=== PATIENT | male | born 1950 | race Caucasian/White ===

== ENCOUNTER → 2017-01-22 | Outpatient (CLI) | payer MEDICARE ==
[~2017-01-22] MED LIST: ASPI-496 PO; ASPI325T4 PO; ASPI325T80 PO; ASPIRIN PO; ATOR10TA PO; CLIN300C93 PO; DIAZ10TA PO; MULTIVITAMIN PO; OMEG500C3 PO; OMEP20CA9 PO; OXYC-229 PO; OXYC20TA42 PO; SULF1TAB3 PO; TADA5TAB2 PO; TEST200V3 IM
== END | disposition home or self-care (01) ==
LOC: CVU 07:06
PROVIDERS: ATTEND Internal Medicine Cardiovascular Disease
DX: Z13.6 Encounter for screening for cardiovascular disorders (principal); I50.30 Unspecified diastolic (congestive) heart failure; I08.3 Combined rheumatic disorders of mitral, aortic and tricuspid valves; I25.2 Old myocardial infarction; Z86.73 Personal history of transient ischemic attack (TIA), and cerebral infarction without residual deficits; I65.23 Occlusion and stenosis of bilateral carotid arteries; I71.4 Abdominal aortic aneurysm, without rupture; G47.33 Obstructive sleep apnea (adult) (pediatric); Z96.643 Presence of artificial hip joint, bilateral
CPT/HCPCS: 93306; 93880; 93978

== ENCOUNTER 2019-05-13 13:48 | Outpatient (CLI) | payer MEDICARE ==
[~2019-05-13 13:48] MED LIST changes: +ASPI325T17 PO; -ASPI325T4 PO; +CLIN300C8 PO; -CLIN300C93 PO; -OXYC-229 PO; +OXYC-307 PO; +SULF-169 PO; -SULF1TAB3 PO
== END 2019-05-13 23:59 | disposition home or self-care (01) ==
LOC: CFH 13:48
PROVIDERS: ATTEND Internal Medicine Cardiovascular Disease
DX: I08.2 Rheumatic disorders of both aortic and tricuspid valves (principal); E78.5 Hyperlipidemia, unspecified; I44.7 Left bundle-branch block, unspecified
CPT/HCPCS: 93306

== ENCOUNTER 2020-02-12 11:19 | Emergency (ER) | payer MEDICARE ==
[~2020-02-12] VITALS: Ht 180.3 cm; Wt 105.0 kg
[2020-02-12] MEDS ORDERED: PROB500T22 PO (11:37)
[2020-02-12] MEDS ORDERED: OXYC-432 PO (11:37)
[2020-02-12] MEDS ORDERED: METR-90 PO (11:37)
[2020-02-12] MEDS ORDERED: CEPH-376 PO (11:37)
[2020-02-12] MEDS ORDERED: HYDR4TAB PO (11:37)
--- NOTE | 2020-02-12 11:41 | NUR ---
MIRIAM LESLIE BS FOR EXAM. PT STATES HE STARTED ANTIBIOTIC YESTERDAY MORNING. PT ABLE TO SPEAK IN COMPLETE SENTENCES, SPEECH CLEAR, RESP EVEN & UNLABORED, SPEECH CLEAR. REPORT SORE THROAT RT SIDED. DENIES DYSPNEA, SOB. PT STATES HE WAS ADVISED TO SEEK ED EVAL PER ENDODENTIST. TOOK OXYCODONE ER 20MG AT 0830.
[2020-02-12 12:06] LABS: BASOPHILS # (AUTO) 0.02 x10^3/uL (0-0.1); BASOPHILS % (AUTO) 0 % (0-1); EOSINOPHILS # (AUTO) 0.06 x10^3/uL (0-0.4); EOSINOPHILS % (AUTO) 1 % (1-7); LYMPHOCYTES # (AUTO) 1.34 x10^3/uL (1-3.4); LYMPHOCYTES % (AUTO) 15 % (22-44); MD NO; MEAN CORPUSCULAR HEMOGLOBIN 31.1 pg (27.5-34.5); MEAN CORPUSCULAR HGB CONC 33.4 g/dL (33.2-36.2); MEAN CORPUSCULAR VOLUME 93.1 fL (81-97); MEAN PLATELET VOLUME 7.4 fL (7.4-10.4); MONOCYTES # (AUTO) 1.35 x10^3/uL (0.2-0.8); MONOCYTES % (AUTO) 15 % (2-9); NEUTROPHILS # (AUTO) 6.05 x10^3/uL (1.8-6.8); NEUTROPHILS % (AUTO) 69 % (42-75); PLATELET COUNT 183 x10^3/uL (130-400); RED BLOOD COUNT 5.78 x10^6/uL (4.38-5.82); RED CELL DISTRIBUTION WIDTH 15.3 % (9.4-14.8)
[2020-02-12 12:17] LABS: ANION GAP 5 mmol/L (5-15); CALCIUM 9.2 mg/dL (8.5-10.1); CHLORIDE 107 mmol/L (98-107); CREATININE 1.25 mg/dL (0.7-1.3)
[2020-02-12] MEDS ORDERED: CEFTRIAXONE 1,000 MG IM ONE (12:30)
[2020-02-12] MEDS ORDERED: CEFTRIAXONE 1,000 MG ONE (12:50)
[2020-02-12] MEDS ORDERED: LIDOCAINE-MPF 1%, 2ML ONE (12:51)
--- NOTE | 2020-02-12 13:11 | NUR ---
PT REPORT TO KELVIN CHAPARRO. PT CARE TRANSFERRED.
--- NOTE | 2020-02-12 13:13 | NUR ---
RECEIVED REPORT FROM KELVIN HOBBS.
--- NOTE | 2020-02-12 13:14 | NUR ---
DR JACOB AT BS. PT STATES HE JUST TOOK HIS OWN ANTIBIOTIC. ROCEPHIN ADMINISTRATION TO BE DETERMINED, PER DR JACOB.
--- NOTE | 2020-02-12 13:22 | NUR ---
ROBERTO WALL LAW: CANCEL ROCEPHINE ORDER.
--- NOTE | 2020-02-12 14:15 | NUR ---
Break RN. Pt ok for D/C per ERMD. Pt verbalized understanding of d/c instructions. Pt has all own belongings upon D/C, vss, steady gait.
[2020-02-12 14:18] VITALS: BP 132/79
[2020-02-13] MEDS ORDERED: OXYC-432 PO (15:15)
[2020-02-13] MEDS ORDERED: OMEP20TA62 PO (15:15)
[2020-02-13] MEDS ORDERED: HYDR4TAB48 PO (15:15)
[2020-02-13] MEDS ORDERED: TEST200V3 IM (15:15)
[2020-02-13] MEDS ORDERED: METR-90 PO (15:17)
[2020-02-13] MEDS ORDERED: PROB500T22 PO (15:17)
[2020-02-13] MEDS ORDERED: CEPH-376 PO (15:17)
[2020-02-13] MEDS ORDERED: OXYC5TAB2 PO (20:59)
[2020-02-13] MEDS ORDERED: CLIN300C8 PO (21:00)
== END 2020-02-12 14:19 | disposition home or self-care (01) ==
LOC: ED 12:43
DX: K02.9 Dental caries, unspecified (principal); L03.211 Cellulitis of face; K08.89 Other specified disorders of teeth and supporting structures; Z86.73 Personal history of transient ischemic attack (TIA), and cerebral infarction without residual deficits; Z86.718 Personal history of other venous thrombosis and embolism
CPT/HCPCS: 36415; 70490; 80048; 82040; 85025; 99284

== ENCOUNTER 2020-02-13 10:46 | Observation (INO) | payer MEDICARE ==
[~2020-02-13] VITALS: Ht 180.3 cm; Wt 102.0 kg
[~2020-02-13 10:46] MED LIST changes: +CEPH-376 PO; +HYDR4TAB PO; +METR-90 PO; +OXYC-432 PO; +PROB500T22 PO
--- NOTE | 2020-02-13 11:31 | NUR ---
[employer] SUPERVISOR: PT AMBULATORY WITH STEADY GAIT TO ROOM AT THIS TIME.
[2020-02-13 12:25] LABS: BASOPHILS # (AUTO) 0.02 x10^3/uL (0-0.1); BASOPHILS % (AUTO) 0 % (0-1); EOSINOPHILS # (AUTO) 0.11 x10^3/uL (0-0.4); EOSINOPHILS % (AUTO) 1 % (1-7); LYMPHOCYTES # (AUTO) 1.61 x10^3/uL (1-3.4); LYMPHOCYTES % (AUTO) 21 % (22-44); MD NO; MEAN CORPUSCULAR HEMOGLOBIN 30.8 pg (27.5-34.5); MEAN CORPUSCULAR HGB CONC 33.1 g/dL (33.2-36.2); MEAN PLATELET VOLUME 7.5 fL (7.4-10.4); MONOCYTES # (AUTO) 1.19 x10^3/uL (0.2-0.8); MONOCYTES % (AUTO) 16 % (2-9); NEUTROPHILS # (AUTO) 4.77 x10^3/uL (1.8-6.8); NEUTROPHILS % (AUTO) 62 % (42-75); PLATELET COUNT 182 x10^3/uL (130-400); RED BLOOD COUNT 5.81 x10^6/uL (4.38-5.82); RED CELL DISTRIBUTION WIDTH 15.2 % (9.4-14.8)
[2020-02-13 12:31] LABS: ALBUMIN 3.8 g/dL (3.4-5.0); ANION GAP 5 mmol/L (5-15); CHLORIDE 109 mmol/L (98-107); CREATININE 1.25 mg/dL (0.7-1.3)
--- NOTE | 2020-02-13 12:38 | NUR ---
MILD DISABILITIES TEACHER: DR. ALEXANDER PAGED PER DR. GUILLEN REQUEST.
--- NOTE | 2020-02-13 12:54 | NUR ---
report given to Cat.
--- NOTE | 2020-02-13 13:43 | NUR ---
DR ALEXANDER AT BEDSIDE EXAMINING PT
--- NOTE | 2020-02-13 14:21 | NUR ---
PT AWARE OF INTENTION TO ADMIT. TO XRAY
[2020-02-13] MEDS ORDERED: OXYC-432 PO (15:15)
[2020-02-13] MEDS ORDERED: TEST200V3 IM (15:15)
[2020-02-13] MEDS ORDERED: OMEP20TA62 PO (15:15)
[2020-02-13] MEDS ORDERED: HYDR4TAB48 PO (15:15)
[2020-02-13] MEDS ORDERED: CEPH-376 PO (15:17)
[2020-02-13] MEDS ORDERED: METR-90 PO (15:17)
[2020-02-13] MEDS ORDERED: PROB500T22 PO (15:17)
--- NOTE | 2020-02-13 15:21 | NUR ---
TASK RN NOTE: MED REC COMPLETED. VS REASSESSED. PT A&O, RESPS EVEN AND UNLABORED. NADN. PT DENIES ANY NEEDS. REPORT GIVEN BACK TO KELVIN GUZMAN.
--- NOTE | 2020-02-13 15:41 | NUR ---
REPORT TO SHAYNA WARREN. PT TO BE TRANSPORTED
[2020-02-13 17:00] VITALS: BP 117/68
[2020-02-13] MEDS ORDERED: HYDROmorphone 2 MG/ML, 1ML IVPush PRN (17:30)
[2020-02-13] MEDS ORDERED: LABETALOL 5MG/ML, 20ML IV PRN (17:30)
[2020-02-13] MEDS ORDERED: hydrALAzine 20 MG/ML, 1ML IV PRN (17:30)
[2020-02-13] MEDS ORDERED: HALOPERIDOL 5 MG/ML IV PRN (17:30)
[2020-02-13] MEDS ORDERED: PROMETHAZINE 25 MG/ML, 1ML IV PRN (17:30)
[2020-02-13] MEDS ORDERED: OXYcodone 5 MG/5 ML ORAL.SOL UDC PO PRN (17:30)
[2020-02-13] MEDS ORDERED: MEPERIDINE/PF 25MG/ML,1ML IVPush PRN (17:30)
[2020-02-13] MEDS ORDERED: FENTANYL PF 100 MCG/2ML ONE ×3 (17:36→20:33)
[2020-02-13] MEDS ORDERED: NEOSPORIN OINT. PKT 1 PACKET ONE (17:39)
[2020-02-13] MEDS ORDERED: LIDOCAINE 1%-EPI 1:100K, 20ML ONE (17:39)
[2020-02-13] MEDS ORDERED: CLINDAMYCIN 150 MG/ML, 6ML ONE (18:34)
[2020-02-13] MEDS ORDERED: ROCURONIUM 10MG/ML,5ML ONE (18:48)
[2020-02-13] MEDS ORDERED: GLYCOPYRROLATE 0.2MG/1ML, 5ML ONE (18:48)
[2020-02-13] MEDS ORDERED: ONDANSETRON 2MG/ML, 2ML ONE (18:48)
[2020-02-13] MEDS ORDERED: CEFAZOLIN 1,000 MG ONE (18:48)
[2020-02-13] MEDS ORDERED: DEXAMETHASONE 4 MG/ML, 1ML ONE (18:48)
[2020-02-13] MEDS ORDERED: SUCCINYLCHOLINE 20 MG/ML, 10ML ONE (18:48)
[2020-02-13] MEDS ORDERED: NEOSTIGMINE 1 MG/ML, 10ML ONE (18:48)
[2020-02-13] MEDS ORDERED: PROPOFOL 10 MG/ML, 20ML ONE (18:48)
[2020-02-13] MEDS ORDERED: MEPERIDINE/PF 25MG/ML,1ML ONE (19:08)
[2020-02-13] MEDS: FENTANYL PF 100 MCG/2ML IV PRN ×2 (19:08→19:23)
[2020-02-13] MEDS ORDERED: OXYcodone 5 MG/5 ML ORAL.SOL UDC ONE (19:26)
[2020-02-13] MEDS ORDERED: OXYC5TAB2 PO (20:59)
[2020-02-13] MEDS ORDERED: CLIN300C8 PO (21:00)
== END 2020-02-13 22:40 | disposition home or self-care (01) ==
LOC: ED 12:30 → EDIP 13:59 → 4NE 16:33
PROVIDERS: ADMIT Oral & Maxillofacial Surgery; ATTEND Oral & Maxillofacial Surgery
DX: J36 Peritonsillar abscess (principal); K21.9 Gastro-esophageal reflux disease without esophagitis; E78.00 Pure hypercholesterolemia, unspecified; I10 Essential (primary) hypertension; K04.7 Periapical abscess without sinus; I25.2 Old myocardial infarction; I25.10 Atherosclerotic heart disease of native coronary artery without angina pectoris; Z79.899 Other long term (current) drug therapy
CPT/HCPCS: 36415; 41899; 80048; 82040; 83605; 85025; 99284; G0378; J0330; J1100; J2175; J2405; J2704; J3010; J3490; S0077; J0690; J2710

== ENCOUNTER → 2020-04-30 | Outpatient (CLI) | payer MEDICARE ==
[~2020-04-30] MED LIST changes: +HYDR4TAB48 PO; +OMEP20TA62 PO; +OXYC5TAB2 PO; +REGADENOSON 0.4 MG/5 ML SYRINGE ONE
== END | disposition home or self-care (01) ==
LOC: CFH 10:55
PROVIDERS: ATTEND Internal Medicine Cardiovascular Disease
DX: I08.3 Combined rheumatic disorders of mitral, aortic and tricuspid valves (principal); E78.5 Hyperlipidemia, unspecified; I25.2 Old myocardial infarction; I25.10 Atherosclerotic heart disease of native coronary artery without angina pectoris
CPT/HCPCS: 78452; 93017; 93306; A9502; J2785

== ENCOUNTER 2021-02-21 22:30 | Emergency (ER) | payer MEDICARE ==
[~2021-02-21] VITALS: Ht 180.3 cm; Wt 103.7 kg
[~2021-02-21 22:30] MED LIST changes: -CLIN300C8 PO; +CLIN300C9 PO; -OXYC-307 PO; +OXYC-380 PO; -OXYC-432 PO; +OXYC1TAB18 PO; -REGADENOSON 0.4 MG/5 ML SYRINGE ONE
--- NOTE | 2021-02-21 22:58 | NUR ---
PT AMBULATED IN TO ROOM. C/O PAIN TO LEFT PECTORAL MUSCLE/CHEST AREA. AND TO LEFT SHOULDER. PT STATES HE HAD A FALL 2 DAYS AGO IN [place]. HAS HAD DISCOMFORT SINCE THEN. PAIN ON PALPATION OF LEFT SHOULDER, AND LEFT PECTORAL MUSCLE.
--- NOTE | 2021-02-21 23:12 | NUR ---
PIV STARTED TO RIGHT FOREARM, X1 ATTEMPT, 18G CATH, BLOOD DRAWN AND SENT TO LAB.
--- NOTE | 2021-02-21 23:12 | NUR ---
PT WHEELED OVER TO XRAY DEPT FOR SHOULDER AND KNEE XRAYS. PT ON CR MONITOR WHEN IN ROOM. PLEASANT AND COOPERATIVE.
[2021-02-21 23:25] LABS: BASOPHILS % (AUTO) 0 % (0-1); EOSINOPHILS % (AUTO) 0 % (1-7); LYMPHOCYTES % (AUTO) 12 % (22-44); MEAN CORPUSCULAR HGB CONC 33.3 g/dL (33.2-36.2); MEAN PLATELET VOLUME 8.6 fL (7.4-10.4); MONOCYTES % (AUTO) 8 % (2-9); NEUTROPHILS % (AUTO) 79 % (42-75); PLATELET COUNT 202 x10^3/uL (130-400); RED BLOOD COUNT 5.59 x10^6/uL (4.38-5.82); RED CELL DISTRIBUTION WIDTH 14.4 % (9.4-14.8)
[2021-02-21 23:26] LABS: MD NO
[2021-02-21] MEDS ORDERED: SODIUM CHLORIDE FLUSH 10ML SYR IVF ONE (23:30)
[2021-02-21] MEDS ORDERED: ONDANSETRON 2MG/ML, 2ML IVPush ONE (23:30)
[2021-02-21 23:36] LABS: ALANINE AMINOTRANSFERASE 40 U/L (12-78); ALBUMIN 4.2 g/dL (3.4-5.0); ANION GAP 7 mmol/L (5-15); CALCIUM 9.6 mg/dL (8.5-10.1); CHLORIDE 109 mmol/L (98-107); CREATININE 1.18 mg/dL (0.7-1.3)
[2021-02-21] MEDS ORDERED: HYDROmorphone 1 MG/ML, 1ML INJ ONE (23:38)
[2021-02-21] MEDS ORDERED: ONDANSETRON 2MG/ML, 2ML ONE (23:38)
[2021-02-21 23:41] LABS: ALKALINE PHOSPHATASE 56 U/L (45-117); BILIRUBIN,TOTAL 0.8 mg/dL (0.2-1.0); TOTAL PROTEIN 7.5 g/dL (6.4-8.2); TROPONIN I < 0.015 ng/mL (0.000-0.045)
[2021-02-21] MEDS: HYDROmorphone 1 MG/ML, 1ML INJ IVPush PRN (23:45)
--- NOTE | 2021-02-21 23:47 | NUR ---
PT MEDICATED PER EMAR. TOLERATED WELL, PT IN NO ACUTE DISTRESS, A&OX4. AT BEDSIDE. AWAITING ON RESULTS.
[2021-02-22 00:24] VITALS: BP 117/71
[2021-02-22] MEDS ORDERED: HYDROmorphone 1 MG/ML, 1ML INJ ONE (00:26)
[2021-02-22] MEDS ORDERED: MAALOX/HYOSCYAMINE/LIDOCAINE 45 ML BTL ONE (00:26)
[2021-02-22] MEDS: HYDROmorphone 1 MG/ML, 1ML INJ IVPush PRN (00:30)
[2021-02-22] MEDS ORDERED: MAALOX/HYOSCYAMINE/LIDOCAINE 45 ML BTL PO ONE (00:30)
--- NOTE | 2021-02-22 00:56 | NUR ---
PT A&OX4, NO DISTRESS, NO MORE COMPLAINTS OF PAIN AT THIS TIME. F/U AND D/C INSTRUCTIONS GIVEN TO PT AND HE V/U. PT AMBULATORY, AND PIV D/C'D AND CATH INTACT, WITHOUT ISSUE.
== END 2021-02-22 00:58 | disposition home or self-care (01) ==
LOC: ED 02-22 00:40
DX: S06.0X0A Concussion without loss of consciousness, initial encounter (principal); S29.011A Strain of muscle and tendon of front wall of thorax, initial encounter; K21.00 Gastro-esophageal reflux disease with esophagitis, without bleeding; R07.89 Other chest pain; I44.7 Left bundle-branch block, unspecified; R94.31 Abnormal electrocardiogram [ECG] [EKG]; I25.10 Atherosclerotic heart disease of native coronary artery without angina pectoris; I25.2 Old myocardial infarction; W01.0XXA Fall on same level from slipping, tripping and stumbling without subsequent striking against object, initial encounter; Y93.89 Activity, other specified; Y92.89 Other specified places as the place of occurrence of the external cause; Y99.8 Other external cause status
CPT/HCPCS: 36415; 70450; 71250; 73030; 73564; 74176; 80053; 84484; 85025; 93005; 96374; 96375; 96376; 99285; J1170; J2405